=== PATIENT | male | born 1975 | race Caucasian/White ===

== ENCOUNTER 2017-04-12 10:00 | Day surgery (SDC) | payer OTHER ==
[~2017-04-12] VITALS: Ht 177.8 cm; Wt 100.0 kg
[~2017-04-12 10:00] MED LIST: ATOR10TA9 PO; ATOR20TA9 PO; DOXY100T PO; LEVO50TA PO; MESA400C PO; MESA400C2 PO; METO50TA11 PO; METO50TA82 PO; WARF10TA PO; WARF7.5T PO
[2017-04-12 10:28] VITALS: BP 141/95
[2017-04-12] MEDS ORDERED: SODIUM CHLORIDE 0.9% 1,000 ML IV ONE (10:30)
[2017-04-12] MEDS ORDERED: WARF5TAB PO (10:41)
[2017-04-12] MEDS ORDERED: CEFAZOLIN 1,000 MG IM ONE (11:00)
[2017-04-12] MEDS ORDERED: CEFAZOLIN 1,000 MG ONE (11:23)
[2017-04-12] MEDS ORDERED: PROPOFOL 10 MG/ML, 20ML ONE (11:23)
[2017-04-12] MEDS ORDERED: PHENYLEPHRINE 10 MG/ML ONE (11:23)
== END 2017-04-12 14:25 | disposition home or self-care (01) ==
LOC: CACL 10:00
PROVIDERS: ATTEND Internal Medicine Cardiovascular Disease
DX: I34.0 Nonrheumatic mitral (valve) insufficiency (principal); I37.1 Nonrheumatic pulmonary valve insufficiency; I35.8 Other nonrheumatic aortic valve disorders; I10 Essential (primary) hypertension; E03.9 Hypothyroidism, unspecified; Z95.810 Presence of automatic (implantable) cardiac defibrillator; E78.2 Mixed hyperlipidemia
CPT/HCPCS: 93312; 93321; 93325; J0690; J2370; J2704

== ENCOUNTER 2017-08-22 16:23 | Inpatient (IN) | payer OTHER ==
[~2017-08-22] VITALS: Ht 177.8 cm; Wt 107.0 kg
[~2017-08-22 16:23] MED LIST changes: +METO-264 PO; -METO50TA11 PO; +WARF5TAB PO
[2017-08-22] MEDS ORDERED: SODIUM CHLORIDE FLUSH 10ML SYR IVF ONE (17:00)
[2017-08-22] MEDS ORDERED: DILTIAZEM 125 MG in DEXTROSE 5% 100 ML IV SCH (17:08)
[2017-08-22 17:13] LABS: HEMATOCRIT 40.4 % (39.2-51.8); WHITE BLOOD COUNT 8.4 x10^3/uL (3.4-10)
[2017-08-22] MEDS ORDERED: DILTIAZEM 5 MG/ML, 5ML ONE (17:18)
[2017-08-22 17:25] LABS: ASPARTATE AMINO TRANSFERASE 22 U/L (15-37); BLOOD UREA NITROGEN 13 mg/dL (7-18)
[2017-08-22] MEDS ORDERED: DILTIAZEM 5 MG/ML, 5ML IV ONE (17:30)
[2017-08-22] MEDS ORDERED: PLEASE ENTER WEIGHT MC SCH (17:30)
[2017-08-22 17:31] LABS: IS PT STATUS REG ER OR PRE ER? YES
[2017-08-22] MEDS ORDERED: WARF5TAB7 PO ×2 (18:00)
[2017-08-22] MEDS ORDERED: METO50TA4 PO (18:00)
[2017-08-22] MEDS ORDERED: MESA800T2 PO (18:00)
[2017-08-22] MEDS ORDERED: ATOR20TA9 PO (18:00)
[2017-08-22] MEDS ORDERED: LEVO50TA PO (18:00)
[2017-08-22] MEDS ORDERED: ACYC200O PO (18:00)
[2017-08-22] MEDS ORDERED: SODIUM CHLORIDE FLUSH 10ML SYR IVF PRN (18:30)
[2017-08-22] MEDS ORDERED: HEPARIN 25,000 UNITS/500ML PMX 500 ML ONE (19:25)
[2017-08-22] MEDS ORDERED: OXYcodone IR 5MG TABLET PO PRN (19:30)
[2017-08-22] MEDS ORDERED: POTASSIUM CHLORIDE 40 MEQ in SODIUM CHLORIDE 0.9% 500 ML IV ONE (19:30)
[2017-08-22] MEDS ORDERED: DOCUSATE 100 MG CAPSULE PO PRN (19:30)
[2017-08-22] MEDS ORDERED: HEPARIN 25,000 UNITS/500ML PMX 500 ML IV PRN (19:30)
[2017-08-22] MEDS ORDERED: HEPARIN 5,000 UNITS/ML, 1ML IV PRN (19:30)
[2017-08-22] MEDS ORDERED: BISACODYL 10 MG SUPP PR PRN (19:30)
[2017-08-22] MEDS ORDERED: ACETAMINOPHEN 325 MG TABLET PO PRN (19:30)
[2017-08-22] MEDS ORDERED: HEPARIN 5,000 UNITS/ML, 1ML IV ONE (19:30)
[2017-08-22] MEDS ORDERED: morphine SULFATE 10 MG/ML, 1ML IVPush PRN (19:30)
[2017-08-22] MEDS ORDERED: ONDANSETRON 2MG/ML, 2ML IVPush PRN (19:30)
[2017-08-22] MEDS ORDERED: ENALAPRILAT 1.25 MG/ML, 2ML IVPush PRN (19:30)
[2017-08-22] MEDS ORDERED: POLYETHYLENE GLYCOL 17 GM PACKET PO PRN (19:30)
[2017-08-22] MEDS ORDERED: hydrALAzine 20 MG/ML, 1ML IVPush PRN (19:30)
[2017-08-22] MEDS: HEPARIN 25,000 UNITS/500ML PMX 500 ML IV PRN ×2 (19:33→19:34)
[2017-08-22 21:51] VITALS: BP 124/87
[2017-08-22] MEDS ORDERED: WARFARIN 10 MG TABLET PO-COUM ONE (22:00)
[2017-08-22] MEDS: MESALAMINE 400 MG CAPSULE.DR PO SCH (22:28)
[2017-08-22] MEDS: ATORVASTATIN 20 MG TABLET PO SCH (22:29)
[2017-08-23 01:31] VITALS: BP 115/79
[2017-08-23] MEDS: LEVOTHYROXINE 50 MCG TABLET PO SCH (05:19)
[2017-08-23] MEDS ORDERED: DILTIAZEM 125 MG in SODIUM CHLORIDE 0.9% 100 ML IV SCH (06:30)
[2017-08-23 08:15] LABS: HEMATOCRIT 37.3 % (39.2-51.8); HEMOGLOBIN 12.9 g/dL (13.7-18.0); WHITE BLOOD COUNT 7.2 x10^3/uL (3.4-10)
[2017-08-23 08:25] VITALS: BP 123/82
[2017-08-23 08:25] LABS: BLOOD UREA NITROGEN 9 mg/dL (7-18)
[2017-08-23 08:28] LABS: ASPARTATE AMINO TRANSFERASE 13 U/L (15-37)
[2017-08-23] MEDS: METOPROLOL SUCCINATE 50 MG TAB.ER.24H PO SCH (08:52)
[2017-08-23] MEDS: MESALAMINE 400 MG CAPSULE.DR PO SCH ×3 (08:52→21:44)
[2017-08-23] MEDS: HEPARIN 5,000 UNITS/ML, 1ML IV PRN ×3 (10:15→23:49)
[2017-08-23 13:35] VITALS: BP 127/82
[2017-08-23] MEDS ORDERED: ZOLPIDEM 5MG TABLET PO PRN (15:00)
[2017-08-23] MEDS ORDERED: WARFARIN 7.5 MG TABLET PO-COUM SCH (18:00)
[2017-08-23] MEDS ORDERED: HEPARIN 25,000 UNITS/500ML PMX 500 ML IV PRN (18:00)
[2017-08-23] MEDS ORDERED: [UNRECOGNIZED DRUG - OTHER] MC SCH (18:00)
[2017-08-23 20:00] VITALS: BP 135/96
[2017-08-23] MEDS: DILTIAZEM 120 MG CAP.ER.12H PO SCH (21:44)
[2017-08-23] MEDS: ATORVASTATIN 20 MG TABLET PO SCH (21:44)
[2017-08-24 02:00] VITALS: BP 134/94
[2017-08-24] MEDS: LEVOTHYROXINE 50 MCG TABLET PO SCH (05:31)
[2017-08-24] MEDS: DILTIAZEM 120 MG CAP.ER.12H PO SCH (08:06)
[2017-08-24] MEDS: MESALAMINE 400 MG CAPSULE.DR PO SCH (08:06)
[2017-08-24] MEDS: METOPROLOL SUCCINATE 50 MG TAB.ER.24H PO SCH (08:06)
[2017-08-24] MEDS: HEPARIN 5,000 UNITS/ML, 1ML IV PRN (08:07)
[2017-08-24 08:08] VITALS: BP 125/78
[2017-08-24] MEDS ORDERED: ENOXAPARIN 100 MG/ML SQ SCH (12:30)
[2017-08-24] MEDS ORDERED: DILT120C11 PO (13:04)
[2017-08-24] MEDS ORDERED: ENOX100S4 SQ (13:04)
[2017-08-24 13:54] VITALS: BP 131/97
[2017-08-24] MEDS ORDERED: WARFARIN 7.5 MG TABLET PO-COUM SCH (18:00)
== END 2017-08-24 15:28 | disposition home or self-care (01) | DRG 309 ==
LOC: ED 18:09 → EDIP 18:10 → ED 19:09 → 5SO 20:22
PROVIDERS: ADMIT Internal Medicine; ATTEND Internal Medicine
DX: I48.91 Unspecified atrial fibrillation (principal); K51.90 Ulcerative colitis, unspecified, without complications; I31.3 Pericardial effusion (noninflammatory); Z95.2 Presence of prosthetic heart valve; Q23.0 Congenital stenosis of aortic valve; E03.9 Hypothyroidism, unspecified; I10 Essential (primary) hypertension; E78.5 Hyperlipidemia, unspecified; E87.6 Hypokalemia; F41.1 Generalized anxiety disorder; Z86.19 Personal history of other infectious and parasitic diseases; Z95.1 Presence of aortocoronary bypass graft; Z95.810 Presence of automatic (implantable) cardiac defibrillator
CPT/HCPCS: 36415; 71010; 80053; 80061; 81003; 83036; 83735; 83880; 84439; 84443; 84484; 85025; 85520; 85610; 85730; 93005; 93306; 96365; 96366; 96375; J1644; J1650; J3480; J7040

== ENCOUNTER → 2019-10-01 | Outpatient (CLI) | payer OTHER ==
[~2019-10-01] VITALS: Ht 177.8 cm; Wt 103.4 kg
[~2019-10-01] MED LIST changes: +ACYC200O PO; +ATOR20TA37 PO; -ATOR20TA9 PO; +CALC-545 PO; +CHOL20002 PO; +DILT120C11 PO; +ENOX100S4 SQ; +FILTER 1.2 MICRON IV ONE; +FURO20TA3 PO; +INFLIXIMAB IV ONE; +MAGN300C PO; +MESA800T2 PO; +METO50TA4 PO; +MULT-658 PO; +SODIUM CHLORIDE 0.9% 100 ML IV SCH; +SODIUM CHLORIDE 0.9% IV ONE; +WARF-36 PO; +ZINC100T PO
[2019-10-01 09:10] VITALS: BP 130/83
[2019-10-01 12:00] VITALS: BP 119/84
== END | disposition home or self-care (01) ==
LOC: INFUSION 09:02
PROVIDERS: ATTEND Internal Medicine Gastroenterology
DX: K51.50 Left sided colitis without complications (principal)
CPT/HCPCS: 96365; 96366; J1745; J7050

== ENCOUNTER 2019-11-26 09:12 | Outpatient (CLI) | payer OTHER ==
[~2019-11-26] VITALS: Ht 177.8 cm; Wt 104.4 kg
[2019-11-26 09:00] VITALS: BP 131/90
[~2019-11-26 09:12] MED LIST changes: -FILTER 1.2 MICRON IV ONE; -INFLIXIMAB IV ONE; -SODIUM CHLORIDE 0.9% 100 ML IV SCH; -SODIUM CHLORIDE 0.9% IV ONE
[2019-11-26] MEDS ORDERED: SODIUM CHLORIDE 0.9% IV ONE (09:30)
[2019-11-26] MEDS ORDERED: SODIUM CHLORIDE 0.9% 100 ML IV SCH (09:30)
[2019-11-26] MEDS ORDERED: FILTER 1.2 MICRON IV ONE (09:30)
[2019-11-26] MEDS ORDERED: INFLIXIMAB IV ONE (09:30)
== END 2019-11-26 23:59 | disposition home or self-care (01) ==
LOC: INFUSION 09:12
PROVIDERS: ATTEND Internal Medicine Gastroenterology
DX: K51.50 Left sided colitis without complications (principal)
CPT/HCPCS: 96365; 96366; J1745; J7050

== ENCOUNTER → 2020-03-17 | Outpatient (CLI) | payer OTHER ==
[~2020-03-17] VITALS: Ht 177.8 cm; Wt 104.6 kg
[~2020-03-17] MED LIST changes: +FILTER 1.2 MICRON IV ONE; +INFLIXIMAB IV ONE; +SODIUM CHLORIDE 0.9% 1,000 ML IV SCH; +SODIUM CHLORIDE 0.9% IV ONE
[2020-03-17 09:20] VITALS: BP 130/83
[2020-03-17 12:10] VITALS: BP 134/89
== END | disposition home or self-care (01) ==
LOC: INFUSION 09:19
PROVIDERS: ATTEND Internal Medicine Gastroenterology
DX: K51.50 Left sided colitis without complications (principal)
CPT/HCPCS: 96365; 96366; J1745; J7050

== ENCOUNTER → 2020-07-08 | Outpatient (CLI) | payer OTHER ==
[~2020-07-08] MED LIST changes: -FILTER 1.2 MICRON IV ONE; -INFLIXIMAB IV ONE; -SODIUM CHLORIDE 0.9% 1,000 ML IV SCH; -SODIUM CHLORIDE 0.9% IV ONE; -WARF5TAB PO; +WARF5TAB2 PO
== END | disposition home or self-care (01) ==
LOC: CFH 06:42
PROVIDERS: ATTEND Internal Medicine Cardiovascular Disease
DX: I37.1 Nonrheumatic pulmonary valve insufficiency (principal); I48.91 Unspecified atrial fibrillation
CPT/HCPCS: 93306